=== PATIENT | male | born 1960 | race Caucasian/White ===

== ENCOUNTER 2017-06-23 11:40 | Day surgery (SDC) | payer BC ==
[2017-06-23] MEDS ORDERED: ceFAZolin SODIUM 2 GM in DEXTROSE 5 % IN WATER 50 ML IV PRN ×2 (11:45)
[2017-06-23] MEDS ORDERED: RINGER'S SOLUTION,LACTATED 1,000 ML IV PRN ×2 (11:45→13:19)
[2017-06-23] MEDS ORDERED: PANTOPRAZOLE SODIUM 40 MG in NORMAL SALINE 100 ML IV PRN (11:46)
[2017-06-23] MEDS ORDERED: RINGER'S SOLUTION,LACTATED 1,000 ML IV ONE (12:05)
[2017-06-23] MEDS ORDERED: BUPIVACAINE HCL 50 ML VIAL IJ ONE (12:35)
[2017-06-23] MEDS ORDERED: oxyCODONE HCL/ACETAMINOPHEN 1 TAB TABLET PO ONE ×2 (13:19→14:45)
[2017-06-23 15:36] VITALS: BP 104/60
--- NOTE | 2017-06-23 17:45 | OR ---
Operative Report - Dictated Report Narrative: OPERATIVE REPORT DATE OF OPERATION: 06/23/2017 PREOPERATIVE DIAGNOSIS: Thrombosed external hemorrhoid POSTOPERATIVE DIAGNOSIS: Thrombosed external hemorrhoid (right lateral position) OPERATION: Excision of thrombosed external hemorrhoid SURGEON: Estiven Santos MD ANESTHESIA: MAC/local Price [place] CRNA INDICATIONS FOR PROCEDURE: The patient is a 57-year-old male presented self referred with a 2 week history of painful swelling to the right of the anus. He has had hemorrhoid problems before but not this painful. He had some hard stools when this first started. FINDINGS: 2 x 2 centimeter thrombosed external hemorrhoid in the right lateral position NARRATIVE OF PROCEDURE: The patient was identified preoperatively and prior to the administration of anesthetic a multidisciplinary timeout was observed. The patient was placed in the left lateral position and after the administration of intravenous sedation the anus was inspected. The entire right lateral hemorrhoidal group was thrombosed. The area was prepped with Betadine solution and isolated with sterile drapes. The remainder the patient was covered with a sterile disposable drape. The area was anesthetized with 0.5% plain Marcaine. An elliptical incision was made over the thrombosed hemorrhoid and the underlying clot expressed. The apex of the hemorrhoidal group was secured with a suture of 2-0 chromic which was left long and used for retraction. The ellipse of skin was removed. The clots and thrombosed hemorrhoidal group were then dissected free from surrounding tissue and removed. The resulting defect was then closed with a running vertical mattress suture using the same 2-0 chromic. 2 additional interrupted mattress sutures were also placed. The operative site was washed and dried. A dressing of ABDs and mesh pants was applied. The operative procedure was terminated at this point. The patient tolerated the anesthetic and procedure well without complication. There was no measurable blood loss. No specimen was submitted. The patient was transferred back to the ambulatory surgery area awake and stable condition. The patient remained stable throughout a period of postoperative observation. He denied discomfort. He was able to eat and drink. He was up without assistance. I shared the operative findings with him and his . He was discharged home with instructions not to engage in a hazardous activity today. He is to start Benefiber 1 tablespoon in 8 ounces of liquid by mouth twice daily. He was given a prescription for Percocet 5/325 mg #30 1-2 po Q4-6hrs prn pain. He has phone numbers to call if needed for uncontrolled pain, bleeding or for any questions. A return office appointment will be made for 7- 10 days for recheck. Reviewed and electronically signed
== END 2017-06-23 11:41 | disposition home or self-care (01) ==
LOC: AMB 11:40
PROVIDERS: ATTEND Surgery
PROC: 06BY3ZC Excision of Hemorrhoidal Plexus, Percutaneous Approach (ICD-10-PCS; principal; 2017-06-23 12:15)
DX: K64.5 Perianal venous thrombosis (principal); Z87.891 Personal history of nicotine dependence; Z68.24 Body mass index [BMI] 24.0-24.9, adult